=== PATIENT | male | born 1980 | race Two or more races ===

== ENCOUNTER 2023-12-10 15:02 | Emergency (ER) | payer BC, OTHER ==
[~2023-12-10] VITALS: Ht 170.2 cm; Wt 90.9 kg
[2023-12-10 16:57] LABS: Urine Bacteria NONE SEEN /hpf (None Seen); Urine Blood Negative /uL (Negative); Urine Clarity Clear (Clear); Urine Color Yellow (Yellow); Urine Protein, UAD Negative (Negative); Urine Specific Gravity 1.037 (1.001-1.035); Urine WBC <1 /hpf (0 - 3); Urine pH 5.5 (5.0-8.0)
[2023-12-10 19:32] LABS: Basophils # (auto) 0.1 10 ^3/uL (0-0.2); Basophils % (auto) 1.1 % (0.0-2.0); Eosinophils # (auto) 0.1 10 ^3/uL (0-0.8); Eosinophils % (auto) 1.6 % (0.0-7.0); Hematocrit 48.8 % (41.0-53.0); Hemoglobin 16.6 g/dL (13.5-17.5); Lymphocytes % (auto) 26.3 % (10.0-50.0); Mean Corpuscular Hemoglobin 34.1 pg (28.0-32.0); Mean Corpuscular Hgb Conc. 34.1 g/dL (32.0-36.0); Mean Corpuscular Volume 99.9 fL (80.0-100.0); Monocytes # (auto) 0.6 10 ^3/uL (0-1.3); Monocytes % (auto) 8.5 % (0.0-12.0); Neutrophils # (auto) 4.7 10 ^3/uL (1.6-8.6); Neutrophils % (auto) 62.5 % (37.0-80.0); Nucleated Red Blood Cells % 0.7 %; Red Blood Cells 4.88 10^6/uL (4.5-5.90); Red Cell Distribution Width 18.2 % (11.8-14.3); White Blood Cell 7.5 10^3/uL (4.4-10.8)
[2023-12-10 19:45] LABS: INR 1.57 (0.9-1.15)
[2023-12-10 19:50] LABS: Alanine Aminotransferase 26 U/L (7-40); Albumin 3.2 g/dL (3.2-4.8); Alkaline Phosphatase 435 U/L (46-116); Anion Gap 9 (5-15); Aspartate Aminotransferase 47 U/L (13-40); Bilirubin, Total 10.1 mg/dL (0.2-1.0); Blood Urea Nitrogen 11 mg/dL (9-23); Calcium 9.6 mg/dL (8.5-10.1); Carbon Dioxide 26 mmol/L (20-30); Chloride 92 mmol/L (98-107); Potassium 3.9 mmol/L (3.5-5.1); Sodium 127 mmol/L (136-145); Total Protein 8.7 g/dL (5.7-8.2)
[2023-12-10 19:55] LABS: Glucose 413 mg/dL (74-106)
[2023-12-10 20:06] LABS: Platelet Estimate Decreased
[2023-12-11] MEDS: MORPHINE SULFATE 4 MG/ML SYR/VIAL IM ONE (00:41)
[2023-12-11] MEDS: InsuLIN REG 1unit/0.01ml Soln (100units/ml) SC ONE (00:44)
[2023-12-11 00:51] VITALS: BP 127/90; PULSE 105; RESP 20; TEMP 98.4; O2SAT 100
== END 2023-12-11 00:55 | disposition home or self-care (01) ==
LOC: ER 15:02
DX: K70.9 Alcoholic liver disease, unspecified (principal); E11.65 Type 2 diabetes mellitus with hyperglycemia; G89.29 Other chronic pain; M54.9 Dorsalgia, unspecified; R07.81 Pleurodynia; Z98.890 Other specified postprocedural states; Z87.891 Personal history of nicotine dependence; W01.0XXA Fall on same level from slipping, tripping and stumbling without subsequent striking against object, initial encounter; Y93.89 Activity, other specified; Y92.89 Other specified places as the place of occurrence of the external cause; Y99.8 Other external cause status
CPT/HCPCS: 36415; 72110; 80053; 81001; 85025; 85610; 96372; 99284; J1815; J2270